=== PATIENT | female | born 1970 | race Caucasian/White ===

== ENCOUNTER 2020-04-27 22:02 | Emergency (ER) | payer BC, OTHER ==
[~2020-04-27] VITALS: Ht 165.1 cm; Wt 132.1 kg
[2020-04-27] MEDS ORDERED: HYDROcodone/APAP 5 MG/325 MG (LORTAB) TAB PO STA (22:15)
--- NOTE | 2020-04-27 22:21 | ED Lower Extremity ---
General Chief Complaint: Lower Extremity Stated Complaint: RT BIG TOE PAIN Source: patient History of Present Illness Date Seen by Provider: Apr 27, 2020 Time Seen by Provider: 22:04 Initial Comments 49 yo Female presents with pain to right foot at MTP joint of great toe. She had a large dog step on her foot on 04/26 and has had increasing pain since this happened. She went to work today at [employer] and did try to elevate the foot and ice it when she had time. She last took Acetaminophen at 1500 and took 975 mg at that time. she has only partial kidney function so she can not take NSAIDS. She has had wosening pain throughout the day. She felt like the pain was so bad tonight that she could not bear to go to bed and wait to be seen tomorrow about the pain. Onset: yesterday Severity: severe Pain/Injury Location: right 1st toe Method of Injury: direct blow (dog stepped on foot) Modifying Factors: Worse With Movement, Worse With Other (walking) Allergies and Home Medications Allergies Coded Allergies: Sulfa (Sulfonamide Antibiotics) (Verified Allergy, Unknown, 04/27/20) ibuprofen (Verified Allergy, Unknown, 04/27/20) latex (Verified Allergy, Unknown, 04/27/20) Home Medications Hydrocodone/Acetaminophen 1 Each Tablet, 1 TAB PO Q4H PRN for PAIN-SEVERE (8-10) Prescribed by: CHAUNCEY EDWARDS on 04/27/20 2319 Patient Home Medication List Home Medication List Reviewed: Yes Review of Systems Constitutional: No chills, No fever EENTM: no symptoms reported Respiratory: no symptoms reported Cardiovascular: no symptoms reported Gastrointestinal: no symptoms reported Genitourinary: no symptoms reported Musculoskeletal: see HPI Skin: change in color (redness to right MTP joint of great toe on right foot) Psychiatric/Neurological: Anxiety Past Eqdjqpu-Rlycgd-Huaswo Hx Past Med/Social Hx: Reviewed Nursing Past Med/Soc Hx Past Medical History Genitourinary: Yes Renal Failure (only partial kidney function) Physical Exam Vital Signs Vital Signs - First Documented 04/27/20 22:13 Temp 36.2 Pulse 106 Resp 20 B/P (MAP) 159/106 (123) Pulse Ox 97 O2 Delivery Room Air Capillary Refill : Height, Weight, BMI Height: '" Weight: lbs. oz. kg; BMI Method: General Appearance: moderate distress, obese Cardiovascular: normal peripheral pulses Feet: right foot limited range of motion (Right great toe MTP joint due to pain), right foot pain, right foot soft tissue tenderness, right foot swelling Neurologic/Tendon: normal sensation, normal motor functions Neurologic/Psychiatric: alert, oriented x 3, other (anxious) Skin: warm/dry, other (erythema to great toe MTP joint on right foot) Procedures/Interventions Splinting and Joint Reduction : Location: right foot Pre-Proc Neuro Vasc Exam: normal Post-Proc Neuro Vasc Exam: normal Splints: Post Op Shoe (right foot) Progress/Results/Core Measures Results/Orders My Orders Orders - CHAUNCEY EDWARDS MD Hydrocodone/Apap 5/325 Tablet (Lortab 5 (04/27/20 22:15) Foot 3 View Right (04/27/20 22:15) Ice: Apply To Affected Area (04/27/20 22:15) Elevate Affected Extremity (04/27/20 22:15) Rx-Hydrocodone/Apap 5-325 Mg (Rx-Vicodin (04/27/20 23:15) Orthopedic Equiment (04/27/20 23:04) Ed Ortho/Other Supplies Order (04/27/20 23:04) Medications Given in ED Current Medications Medications Dose Ordered Sig/Guille Route Start Time Stop Time Status Last Admin Dose Admin Acetaminophen/ Hydrocodone Bitart 1 ea Q4H PRN PO 04/27/20 23:15 04/27/20 23:16 DC 04/27/20 23:14 1 EA Vital Signs/I&O 04/27/20 04/27/20 22:13 23:15 Temp 36.2 Pulse 106 98 Resp 20 18 B/P (MAP) 159/106 (123) 136/98 (123) Pulse Ox 97 99 O2 Delivery Room Air Room Air Progress Progress Note #1: Progress Note Hydrocodone for pain, ice and elevate foot. Obtain xrays of the foot to check for bony injury. Progress Note #2: Progress Note on my review of her 3 views of the right foot there is no definite fracture seen of her foot but she has possible irregularity of her distal portion of the 1st Metatarsal where she has redness and pain. Treat with post op shoe, weight bearing as tolerated, hydrocodone, ice and elevation. Check with clinic if not improving in next 7 to 10 days or sooner if worsening. May need more advanced imaging or repeat films to see if this is a definite fracture. Pt refused crutches or a walker stating crutches made her have knee problems in the past and she felt too young for a walker. She will use the cane she has with her. Diagnostic Imaging Diagonstic Imaging: Xray Plain Films/CT/US/NM/MRI: other (foot) Comments On my review of 3 views of right foot she has no definite fracture or dislocation but has possible irregularity of the distal 1st metatarsal where she has redness to skin and pain Reviewed: Reviewed by Me Departure Impression Primary Impression: Right foot pain Additional Impressions: Pain of right great toe Contusion of right great toe without damage to nail, initial encounter Disposition: 01 HOME, SELF-CARE Condition: Stable Departure-Patient Inst. Decision time for Depature: 23:11 Referrals: MATA XAVIER (PCP/Family) Primary Care Physician Patient Instructions: Toe Injury (DC), Metatarsalgia (DC) Add. Discharge Instructions: Use post op shoe to help limit movement of your Big toe and you could also wrap the foot and toe with an marcell bandage or athletic tape to help stabilize and compress it Weight bearing as you tolerate it over the next 7 to 10 days until you follow up with clinic. Be seen in clinic in 7 to 10 days for recheck of your foot and the pain, or be seen sooner if having more concerns or worsening problems. Use the Hydrocodone for severe pain. Take a laxative to help prevent constipation while taking the Hydrocodone. Make sure to not take more than 3,000 mg of Acetaminophen in a 24 hour period. Try to ice and elevate your foot as much as possible to help with pain, redness and swelling. All discharge instructions reviewed with patient and/or family. Voiced u nderstanding. Scripts Hydrocodone/Acetaminophen (Hydrocodone-Acetamin 5-325 mg) 1 Each Tablet 1 TAB PO Q4H PRN for PAIN-SEVERE (8-10) for 5 Days, #30 TAB 0 Refills Prov: CHAUNCEY EDWARDS MD 04/27/20 Work/School Note: Work Release Form Date Seen in the Emergency Department: Apr 27, 2020 Return to Work: May 01, 2020 Other Restrictions Listed Below: Light duty and elevate Right foot as much as possible x 10 days Images Extremities-Lower 1 - Tenderness (tender to palpation, movement and erythema to skin. no crepitus) CHAUNCEY EDWARDS MD Apr 27, 2020 22:21
[2020-04-27] MEDS ORDERED: ACHD5005 PO (23:10)
[2020-04-27 23:15] VITALS: BP 136/98
[2020-04-27] MEDS ORDERED: RX-HYDROCODONE/APAP 5/325 MG #4 TAB PK PO PRN (23:15)
--- NOTE | 2020-04-28 05:19 | Diagnostic Imaging Report ---
INDICATION: Pain. COMPARISON: None available. TECHNIQUE: 3 radiographs of the right foot dated 04/27/2020 FINDINGS: Mild hallux valgus metatarsus primus varus with bunion formation. No acute fracture or dislocation. No destructive osseous process. Mild scattered degenerative changes. Small posterior and plantar calcaneal enthesophytes. No suspicious radiopaque foreign body. IMPRESSION: No acute osseous abnormality with mild degenerative changes and small calcaneal enthesophytes. Dictated by: Dictated on workstation # [id number]
== END 2020-04-27 23:15 | disposition home or self-care (01) ==
LOC: EDUNIT# 22:02 → ER FS 22:04
DX: S90.111A Contusion of right great toe without damage to nail, initial encounter (principal); E66.9 Obesity, unspecified; Z88.2 Allergy status to sulfonamides; Z88.6 Allergy status to analgesic agent; Z91.040 Latex allergy status; W54.8XXA Other contact with dog, initial encounter
CPT/HCPCS: 73630

== ENCOUNTER → 2020-05-02 | Outpatient (CLI) | payer BC ==
[~2020-05-02] MED LIST: ACHD5005 PO
--- NOTE | 2020-05-02 10:58 | Diagnostic Imaging Report ---
PROCEDURE: CT right lower extremity without contrast. TECHNIQUE: Axially acquired CT was obtained through the right lower extremity without intravenous contrast. Coronal and sagittal reformations were also performed. Auto Exposure Controls were utilized during the CT exam to meet ALARA standards for radiation dose reduction. INDICATION: Foot pain after crush injury in the great toe. COMPARISON: Right foot radiograph of 04/27/2020. FINDINGS: Bones: No acute or healing fracture within the right foot. Specifically, no fracture is seen within the great toe or first metatarsal. There are some subcortical lucencies along the medial margin of the first metatarsal head that could represent intraosseous ganglion versus early periarticular erosions. Mild degenerative changes at the medial hallux sesamoid and metatarsal articulation. No periosteal reaction to suggest stress fracture in the metatarsals. Soft tissues: Soft tissue attenuation with some scattered increased densities is present adjacent to the medial aspect of the first metatarsal head. Intrinsic musculature of the foot is normal in bulk. No nodular thickening of the plantar fascia to suggest fibromatosis. IMPRESSION: 1. No acute or healing fracture. 2. Potential small periarticular erosions and soft tissue tophi associated with the first MTP head. This raises the possibility of gout. If gout does not fit clinical setting, then these changes may be due to intraosseous ganglion from osteoarthritis. Dictated by: Dictated on workstation # [id number]
== END ==
LOC: RAD FS 10:06
PROVIDERS: ATTEND Nurse Practitioner
DX: S99.921A Unspecified injury of right foot, initial encounter (principal); M79.89 Other specified soft tissue disorders
CPT/HCPCS: 73700